=== PATIENT | female | born 1935 | race Caucasian/White ===

== ENCOUNTER 2016-12-21 12:37 | Inpatient (IN) | payer MEDICARE, OTHER ==
[~2016-12-21] VITALS: Ht 165.1 cm; Wt 56.7 kg
[~2016-12-21 12:37] MED LIST: AMBIEN10 MG PO; ASCORBIC ACID500 MG PO; BAYER CHEWABLE81 MG PO; CALCIUM 600 +1 EAC3 PO; CATAPRES0.1 MG PO; COZAAR100 MG PO; MOBIC7.5 MG PO; NORVASC5 MG PO; PRAVACHOL20 MG PO; SUPER B COMPLE150 MG PO; SYNTHROID50 MCG PO; SYNTHROID75 MCG PO; TENORMIN25 MG PO
[2016-12-21 13:48] LABS: BASOPHILS 0.4 % (0-2); EOSINOPHILS 1.6 % (0-7); HEMATOCRIT 39.7 % (36.0-48.0); HEMOGLOBIN 13.7 g/dL (12-16); IMMATURE GRANULOCYTES 0.4 % (0-5); LYMPHOCYTES 11.7 % (15-50); MCH 31.8 pg (26.0-34.0); MCHC 34.5 g/dL (31.0-37.0); MCV 92.1 fL (80.0-100.0); MEAN PLATELET VOLUME 8.7 fL (7.4-10.4); MONOCYTES 5.7 % (2-11); NEUTROPHILS 80.2 % (40-80); PLATELET COUNT 329 10x3/uL (130-400); RBC 4.31 10x6/uL (4.00-5.40); RDW 12.1 % (11.5-14.5); WBC 10.7 10x3/uL (4.8-10.8)
[2016-12-21 14:00] LABS: UDS - AMPHET NEGATIVE QUAL (NEGATIVE); UDS - BARB NEGATIVE QUAL (NEGATIVE); UDS - BENZO NEGATIVE QUAL (NEGATIVE); UDS - COCAINE NEGATIVE QUAL (NEGATIVE); UDS - METH NEGATIVE QUAL (NEGATIVE); UDS - OPIATE NEGATIVE QUAL (NEGATIVE); UDS - PCP NEGATIVE QUAL (NEGATIVE); UDS - THC NEGATIVE QUAL (NEGATIVE)
[2016-12-21 14:08] LABS: ALBUMIN 3.5 g/dL (3.4-5.0); ANION GAP 11.6 mmol/L (8-16); BILIRUBIN - TOTAL 0.56 mg/dL (0.2-1.3); CALCIUM 8.8 mg/dL (8.5-10.1); CARBON DIOXIDE 28.6 mmol/L (21.0-32.0); POTASSIUM - SERUM 4.2 mmol/L (3.5-5.1)
[2016-12-21 14:14] LABS: APPEARANCE CLEAR (CLEAR); BACTERIA FEW /hpf (NONE SEEN); BILIRUBIN NEGATIVE (NEGATIVE); COLOR YELLOW (YELLOW); EPITHELIAL CELLS RARE /hpf (0-5); GLUCOSE NEGATIVE (NEGATIVE); KETONE NEGATIVE (NEGATIVE); LEUKOCYTE ESTERASE NEGATIVE (NEGATIVE); NITRITE NEGATIVE (NEGATIVE); PROTEIN NEGATIVE (NEGATIVE); RED CELLS - URINE 0-5 /hpf (0-5); SPECIFIC GRAVITY 1.015 (1.005-1.020); UROBILINOGEN NORMAL (NORMAL)
[2016-12-21 16:29] LABS: HEMOGLOBIN A1C 6.1 % (4.8-6.0)
[2016-12-21] MEDS ORDERED: PAXIL CR12.5 MG PO (16:34)
[2016-12-21 16:35] VITALS: BP 160/68; BMI 20.8
[2016-12-21 16:38] LABS: CHOL - HDL RATIO 2.2 ratio (2.3-4.1); THYROID STIMULATING HORMONE 2.14 uIU/mL (0.36-3.74)
--- NOTE | 2016-12-21 17:34 | NUR ---
PATIENT IS ADMITTED FROM OUR EMERGENCY ROOM. SHE C/O DEPRESSION, NO S.I., BUT THE DEPRESSION HAS BEEN WORSENING AND HAS STARTED OVER THE LAST 6 MONTHS. SHE IS A PATIENT OF DR. GAMING AND THE PATIENT AND HER SPOUSE STATE THAT D/T THE PATIENTS WORSENING DEPRESSION HE FELT LIKE SHE NEEDED TO SEE A PSYCHIATRIST. PATIENT HAS BEEN ON PAXIL FOR ONE MONTH AND SHE SAYS SHE FEELS WORSE. PATIENT DOES NOT SLEEP AND HAS BEEN ON AMBIEN FOR YEARS. PATIENT IS ANXIOUS MOSTLY IN THE AM. PATIENT IS ANXIOUS NOW ABOUT BEING HERE, HAVE SHOWN SHE AND SPOUSE THE UNIT AND THE ROOM. PATIENT IS ABLE TO AMBULATE WITHOUT DIFFICULTY, SHE HAS HAD ONE SURGERY AND THAT IS CHOLECYSTECTOMY IN 2015. SHE HAS BEEN TO HER SPOUSE 61 YEARS AND THEY HAVE ONE DAUGHTER WHO IS 59. SKIN IS CLEAR AND INTACT.
[2016-12-21 19:55] VITALS: BP 143/66
--- NOTE | 2016-12-22 00:20 | NUR ---
B) Patient alert and oriented, calm and cooperative, patient stated that she would be asleep 20 minutes after taking her Ambien. I) Administered scheduled medications, monitored for safety, R) Medication compliant, patient fell asleep in dereje chair in about 20 minutes after medications, P) Continue plan of care.
[2016-12-22 08:23] VITALS: BP 145/70
[2016-12-22 14:10] VITALS: Ht 165.1 cm; Wt 56.7 kg
--- NOTE | 2016-12-22 14:39 | NUR ---
B) PATIENT IS AWAKE AND ALERT, SHE IS ORIENTED X 3, BUT SHE HAS SOME CONFUSION, BUT PROBABLY D/T LACK OF SLEEP AND SOME ANXIETY, SHE SAYS SHE IS DEPRESSED AND DOESN'T KNOW HOW SHE WILL GET OUT OF IT. DR. GILLILAND DID CHANGE HER ANTIDEPRESSANT TODAY. PATIENT AMBULATES INDEPENDENTLY. I) PROVIDE PRESCRIBED MEDS. R) PATIENT IS COMPLIANT WITH MEDS AND UNIT MILIE[facility]. SHE IS WALKING IN THE UNIT AND TRYING TO PARTICIPATE IN GROUPS AND ACTIVITIES WITH Jaciel COSTA P) CONTINUE POC.
[2016-12-22 19:34] VITALS: BP 128/64
--- NOTE | 2016-12-23 02:10 | NUR ---
B) Patient is alert and oriented X 3, calm and cooperative, social with staff, I) Administered scheduled medications, monitored for safety, R) Medication compliant, pleasnat and friendly, wanting to get better P) Continue plan of care.
[2016-12-23 06:14] LABS: RAPID PLASMA REAGIN Non Reactive (Non Reactive)
[2016-12-23 07:53] VITALS: BP 150/81
--- NOTE | 2016-12-23 07:53 | PSY ---
PATIENT NAME:KARL LIRIANO MEDICAL RECORD: [id number] : 39 LOCATION:[facility] ADMISSION DATE: 12/21/16 ACCOUNT: [id number] PSYCHIATRIC EVALUATION DATE OF EVALUATION: 12/22/16 IDENTIFYING DATA: This is a 81-year-old white female, who was admitted through the Emergency Department. HISTORY OF PRESENT ILLNESS: This patient has been cared for by her primary care physician for depression for the last 6 months, she has been started on paroxetine, but has continued to have significant symptoms. She has chronic sleep disturbance, has been treated for a number of years with Ambien, but she states that this is worsening. She tends to give only about 4 hours of sleep per night at the present time. Over the past several years, she evidently has been tried on wide range of both antidepressants and hypnotics without consistent success. The patient denies suicidal ideation, but states that she wants to be evaluated for medication change. PAST MEDICAL HISTORY: Significant for osteoarthritis, hypertension, hypothyroidism and hypercholesterolemia. MEDICATION AT THE TIME OF ADMISSION: Included Paxil 20 mg daily, Ambien 10 mg at bedtime, calcium and vitamin D supplements, aspirin 81 mg daily, Mobic 15 mg daily, Cozaar 100 mg daily, atenolol 25 mg daily, Synthroid 75 mcg daily, Pravachol 20 mg h.s., Norvasc 5 mg h.s. FAMILY HISTORY: Noncontributory. ALLERGIES: No medication allergies listed. SOCIAL HISTORY: The patient is . She has 1 child, a daughter. No substance abuse issues. REVIEW OF SYSTEMS: Noncontributory. MENTAL STATUS: On exam, the patient is pleasant and cooperative. She makes good eye contact. Mood is slightly dysphoric. Affect is well controlled. Speech is fluent. Content of thought is negative for psychosis or suicidality. Sensorium testing reveals the patient is oriented to person, place and time, minor concentration difficulties are noted. DIAGNOSTIC IMPRESSION: AXIS I: Major depressive disorder -- recurrent. AXIS II: No diagnosis. AXIS III: Hypertension, hypercholesterolemia, osteoarthritis, hypothyroidism and hyperlipidemia. AXIS IV: Moderate. AXIS V: 45. PLAN: 1. We will admit for medication revision as indicated. 2. Daily supportive therapy. TRANSINT:[id number] Voice Confirmation ID: [id number] DOCUMENT ID: [id number] THEO GILLILAND III, MD at 0753 CC: [id number] DICTATION DATE: 12/22/16 1158 DEPILATORY PAINTER: 12/22/16 1534 ADM IN [place] [id number] [place] [id number]
[2016-12-23 09:16] LABS: FOLATE (FOLIC ACID) - SERUM >20.0 ng/mL (>3.0)
--- NOTE | 2016-12-23 13:05 | NUR ---
B) PATIENT IS AWAKE AND ALERT AND SHE IS SAYING SHE FELT A LITTLE ANXIOUS THIS AM, SHE SAID SHE DID SLEEP BETTER LAST NIGHT. DID DO SOME MED ADJUSTMENTS. PATIENT HAD A MOCA TEST DONE BY DR. CHU AND SCORED 27/30. PATIENT IS AMBULATING INDEPENDENTLY. I) PROVIDE PRESCRIBED MEDS. R) PATIENT IS COMPLIANT WITH MEDS. P) CONTINUE POC.
[2016-12-23 19:51] VITALS: BP 114/65
--- NOTE | 2016-12-23 21:40 | PN ---
PATIENT:KARL LIRIANO MEDICAL RECORD: [id number] LOCATION:[facility] ADMISSION DATE: 12/21/16 PROGRESS NOTE DATE OF SERVICE: 12/23/2016 SUBJECTIVE: The patient states that she feels a little bit better. OBJECTIVE: Telephone conversation was held with her , Deondre Liriano to update him on current treatment plan. The patient is tolerating medication change without difficulty. On exam, mood is more euthymic. Affect is bland. Speech is fluent. Content of thought is negative for overt psychosis or suicidalities. Sensorium shows no change. ASSESSMENT: No change in diagnosis. PLAN: 1. The patient has had neuropsychological testing today, results are pending. 2. We will taper and discontinue Ambien. 3. Continue other medications and supportive therapy. TRANSINT:[id number] Voice Confirmation ID: [id number] DOCUMENT ID: [id number] DEONDRE GILLILAND III, MD at 2140 CC: [id number] DICTATION DATE: 12/23/16 1230 WELL PULLER HEAD: 12/23/16 1325 ADM IN [facility] [address] [place] [address]
--- NOTE | 2016-12-24 03:28 | NUR ---
B) Patient alert and oriented X 4, calm and cooperative with care and assessment, social with staff, watching TV, I) Administered scheduled medications, explained medications changes, monitored for safety. R) Medication compliant, pleasant and friendly P) Continue plan oif care.
[2016-12-24 10:20] VITALS: BP 107/57
--- NOTE | 2016-12-24 11:00 | NUR ---
B) ASSESSMENT COMPLETED. AWAKE AND ORIENT X 4. CALM AND COOPERATIVE WITH STAFF AND CARE. AMBULATES INDEPENDENTLY ABOUT UNIT AREA. SOCIAL WITH STAFF AND PEERS. SAYS SHE IS DEPRESSED. I) ADMINISTERED PRESCRIBED MEDICATIONS. WATCHING TV IN DAYROOM. R) COMPLIANT WITH TAKING MEDICATIONS AND UNIT MILIEU. WANTSTO GO HOME. P) CONTINUE PLAN OF CARE.
[2016-12-24 19:30] VITALS: BP 122/57
--- NOTE | 2016-12-25 04:05 | NUR ---
B) Alert and oriented X 4, calm and cooperative, social with peers and staff, friendly and pleasant. I) Administered perscribed medications, monitored for safety. R) Medication compliant, no behaviors noted. P) Continue plan of care.
[2016-12-25 07:00] VITALS: BP 113/71
--- NOTE | 2016-12-25 16:33 | NUR ---
ALERT AND ORIENTED .COMPLIANT WITH MEDS AND STAFF.VISITS WITH STAFF AND PEERS.AMBULATES PER SELF FREQUENTLY.STATES"I WALK A LOT TO KEEP MYSELF FROM GETTING STIFF."WILL CONTINUE WITH PLAN OF CARE,MONITOR FOR SAFETY AND CHANGES.
[2016-12-25 19:47] VITALS: BP 123/55
--- NOTE | 2016-12-26 00:12 | NUR ---
RECEIVED IN HALLWAY. STANDING AT NURSES STATION TALKING ON PHONE. CALM AND COOPERATIVE WITH CARE AND ASSESSMENTS. ENCOURAGE TO EXPRESS NEEDS. RESTING IN BED EYS CLOSED AT THIS TIME. CONTINUE PLAN OF CARE
[2016-12-26 08:00] VITALS: BP 148/64
--- NOTE | 2016-12-26 10:30 | NUR ---
Alert and oriented times 4. Smiling and conversing with others. States she is here for depression but is feeling better. No suicidial ideations. Sleeping better, reported 9.25 hours of sleep last night. Cooperative with unit milieu. Continue to encourage expression of feeliings and allow one on one time. Monitor safety. Continue plan of care.
[2016-12-26] MEDS ORDERED: REMERON30 MG PO (10:53)
[2016-12-26] MEDS ORDERED: ARICEPT5 MG PO (10:54)
[2016-12-26] MEDS ORDERED: LEXAPRO10 MG PO (10:55)
--- NOTE | 2016-12-26 11:26 | PN ---
PATIENT:KARL LIRIANO MEDICAL RECORD: [id number] LOCATION:[facility] ADMISSION DATE: 12/21/16 PROGRESS NOTE DATE OF SERVICE: 12/25/2016 SUBJECTIVE: No new complaint. OBJECTIVE: The patient has been cooperative. She is tolerating medications well. No new problems have been voiced. On exam, mood slightly dysphoric. Affect bland. Speech fluent. Content of thought negative for psychosis or suicidality. Sensorium unchanged. ASSESSMENT: No change in diagnoses. PLAN: 1. Maintain current medication. 2. Continue supportive therapy. TRANSINT:[id number] Voice Confirmation ID: [id number] DOCUMENT ID: [id number] THEO GILLILAND III, MD at 1126 CC: [id number] DICTATION DATE: 12/25/162148 MEDICAL LABORATORY TECHNICAL OFFICER: 12/25/16 1899 ADM IN [place] [id number] [place] [id number]
--- NOTE | 2016-12-26 12:28 | NUR ---
reviewed pt's discharge instructions with pt and her spouse. verbalized understanding. all belongings sent home with pt.
--- NOTE | 2016-12-27 09:28 | DS ---
PATIENT:KARL LIRIANO :39 MEDICAL RECORD: [id number] DISCHARGE SUMMARY ADMISSION DATE: 12/21/16 DISCHARGE DATE: 12/26/16 DATE OF ADMISSION: 12/21/2016 DATE OF DISCHARGE: 12/26/2016 HISTORY OF PRESENT ILLNESS: This is the first psychiatric hospitalization in her lifetime for this 81-year-old white female. The patient had been under the care of her primary care physician for depression for about 6 months prior to admission. She had been started on paroxetine, but without significant improvement. She also was exhibiting chronic sleep disturbance for which she had been taking Ambien. She had also been tried on other antidepressants, again without significant change. Because of persistent depressive symptoms, the patient was admitted. For further details, please see the previously dictated history. COURSE IN THE HOSPITAL: The patient was seen in consultation by Dr. Freeman. Dr. Freeman noted the presence of hypertension, hyperlipidemia and hypothyroidism. From a medication standpoint, several changes were undertaken. Paxil was discontinued and Lexapro 10 mg daily was substituted. Likewise, Ambien was discontinued. The patient was placed on Remeron; dosage was escalated to 30 mg by the time of discharge. In addition, the patient was seen by Dr. Thompson for neuropsychological testing. The patient scored 27/30 on the [facility] Mental Status scale, which does indicate mild impairment. Accordingly, the patient will be started on Aricept 5 mg daily. Beyond this, the patient was kept on her other routine medications. She did well over the course of the hospitalization, showed some improvement in sleep and definite improvement in terms of affect and mood. By the time of discharge, the patient was felt to be entirely stable to return home with follow up on an outpatient basis with her primary care physician. FINAL DIAGNOSES: AXIS I: Major depressive disorder -- recurrent -- improving, mild cognitive impairment. AXIS II: No diagnosis. AXIS III: Hypertension, hypothyroidism, hyperlipidemia. AXIS IV: Moderate. AXIS V: 55. PLAN: 1. The patient is discharged on the current medication. 2. Diet and activities as tolerated. 3. Follow up with primary care physician. TRANSINT:[id number] Voice Confirmation ID: [id number] DOCUMENT ID: [id number] DISCHARGE SUMMARY REPORT [id number] KARL LIRIANO KATIE GILLILAND III, THEO Alfonso MD at 0928 CC: [id number] DICTATION DATE: 12/26/16 1101 SALES AND MERCHANDISING REPRESENTATIVE: 12/27/16 0228 DIS IN 12/26/16 [place] [id number] [place] [address]
== END 2016-12-26 12:29 | disposition home or self-care (01) | DRG 885 ==
LOC: D.ER 12:37 → D.PSYCH 15:49
PROVIDERS: Emergency Medicine; Psychiatry & Neurology Psychiatry; ADMIT Psychiatry & Neurology Psychiatry
DX: F33.9 Major depressive disorder, recurrent, unspecified (principal); G31.84 Mild cognitive impairment of uncertain or unknown etiology; I10 Essential (primary) hypertension; E03.9 Hypothyroidism, unspecified; E78.5 Hyperlipidemia, unspecified; G47.00 Insomnia, unspecified; H26.9 Unspecified cataract

== ENCOUNTER → 2017-10-23 14:26 | Outpatient (CLI) | payer MEDICARE, OTHER ==
[2016-12-22 14:10] VITALS: BMI 20.8
[~2017-10-23 14:26] MED LIST changes: +ARICEPT5 MG PO; +LEXAPRO10 MG PO; +PAXIL CR12.5 MG PO; +REMERON30 MG PO
== END | disposition home or self-care (01) ==
LOC: D.MRI 14:26
DX: M54.5 Low back pain (principal); M54.30 Sciatica, unspecified side

== ENCOUNTER → 2018-10-30 13:27 | Outpatient (CLI) | payer MEDICARE, OTHER ==
[2016-12-22 14:10] VITALS: BMI 20.8
== END | disposition home or self-care (01) ==
LOC: D.HCCARDIO 13:27
PROVIDERS: ATTEND Internal Medicine Cardiovascular Disease
DX: I34.0 Nonrheumatic mitral (valve) insufficiency (principal)